=== PATIENT | female | born 2000 | race Two or more races ===

== ENCOUNTER 2022-12-31 12:16 | Outpatient (REF) | payer OTHER, SELFPAY ==
--- NOTE | 2022-12-31 12:26 | ECG_ITS ---
Test Reason : F34.1 Blood Pressure : / mmHG Vent. Rate : 112 BPM Atrial Rate : 112 BPM P-R Int : 116 ms QRS Dur : 068 ms QT Int : 324 ms P-R-T Axes : 077 081 036 degrees QTc Int : 442 ms Sinus tachycardia Otherwise normal ECG No previous ECGs available Referred By: Norah Johnson Electronically Signed By:MADALYN HALL
[2022-12-31 13:53] LABS: Anion Gap 10 (12-20); Aspartate Amino Transferase 20 U/L (5-31); Bilirubin Direct 0.2 mg/dL (0.0-0.5); Bilirubin Total 0.7 mg/dL (0.0-1.0); Blood Urea Nitrogen 7 mg/dL (9-16); Carbon Dioxide 28 mmol/L (22-29); Chloride 106 mmol/L (96-108); Estimated Glomerular Filt Rate > 60; Glucose Random 119 mg/dL (60-115); Sodium 140 mmol/L (135-145)
[2022-12-31 13:54] LABS: Alanine Aminotransferase 18 U/L (0-31); Albumin Level 3.8 g/dL (3.5-5.0); Alkaline Phosphatase 63 U/L (39-117); Total Protein 6.8 g/dL (6.5-8.0)
[2022-12-31 14:09] LABS: Thyroid Stimulating Hormone 1.46 uIU/mL (0.32-4.0)
== END 2022-12-31 12:17 | disposition home or self-care (01) ==
LOC: HO.LAB 12:16
PROVIDERS: Visit Provider Psychiatry & Neurology Psychiatry
DX: F34.1 Dysthymic disorder (principal); F40.10 Social phobia, unspecified; F90.0 Attention-deficit hyperactivity disorder, predominantly inattentive type; Z79.899 Other long term (current) drug therapy
CPT/HCPCS: 36415; 80048; 80076; 84443; 93005